=== PATIENT | female | born 1975 | race Caucasian/White ===

== ENCOUNTER 2024-11-09 12:18 | Emergency (ER) | payer BC ==
[2024-11-09] MEDS: Triamcinolone Acetonide 0.1% Crm 15 GM Tube TOP ONE (12:45)
[2024-11-09] MEDS: diphenhydrAMINE/Zinc Acetate 2% Crm 28.4 GM Tube TOP ONE (12:46)
== END 2024-11-09 13:36 | disposition home or self-care (01) ==
LOC: DL.ED 12:18
DX: L50.9 Urticaria, unspecified (principal)
CPT/HCPCS: 99282; A9270; 99283